=== PATIENT | male | born 1965 | race Caucasian/White ===

== ENCOUNTER 2021-11-14 08:29 | Day surgery (SDC) | payer BC ==
[~2021-11-14] VITALS: Ht 200.7 cm; Wt 129.3 kg
[2021-11-14] MEDS ORDERED: ZESTRIL 20MG TA20 MG PO (08:57)
[2021-11-14] MEDS ORDERED: NORVASC 10MG10 MG PO (08:58)
[2021-11-14] MEDS ORDERED: TYLENOL 325MG325 MG PO (08:59)
[2021-11-14] MEDS ORDERED: ALBUTEROL S0.4 MG/ML PO (09:13)
[2021-11-14 09:36] VITALS: BP 151/92; PULSE 84; TEMP 97.7
[2021-11-14 11:40] VITALS: BP 117/78; PULSE 83; TEMP 97.1
[2021-11-14 11:55] VITALS: BP 139/92; PULSE 78
[2021-11-14 12:10] VITALS: BP 151/92; PULSE 78
--- NOTE | 2021-11-14 12:30 | NUR ---
1140 Pt returned to [facility] via cart. Unable to transfer to chair. Pt allowed to remain on cart to rest. Pt awake and talking, mildly disoriented. Postop vitals started and WNL. Juice and muffin provided. at bedside. 1155 Pt sitting up in bed. Alert and oriented. Tolerating food and drink well. 1210 Pt sitting up in bed. Denies pain or nausea. Request to be discharged home. Reviewed discharge instructions and education material with pt and , both verbalize understnading and denies any questions. Removed IV without complications. Instructed pt to dress and call nurse when ready for discharge. 1230 Pt transfered via wheel chair to personal vehicle to be driven home by .
== END 2021-11-14 12:30 | disposition home or self-care (01) ==
LOC: SDCO 08:29
DX: Z12.11 Encounter for screening for malignant neoplasm of colon (principal); K63.5 Polyp of colon; K62.1 Rectal polyp; K91.1 Postgastric surgery syndromes; I10 Essential (primary) hypertension; J45.20 Mild intermittent asthma, uncomplicated; E78.2 Mixed hyperlipidemia; E66.9 Obesity, unspecified; R25.2 Cramp and spasm; R05.9 Cough, unspecified; Z79.899 Other long term (current) drug therapy; Z68.39 Body mass index [BMI] 39.0-39.9, adult; Z90.49 Acquired absence of other specified parts of digestive tract; Z83.3 Family history of diabetes mellitus; Z80.8 Family history of malignant neoplasm of other organs or systems
CPT/HCPCS: J2704; J7030

== ENCOUNTER → 2024-09-15 | Outpatient (CLI) | payer BC ==
[~2024-09-15] MED LIST: ALBUTEROL S0.4 MG/ML PO; NORVASC 10MG10 MG PO; TYLENOL 325MG325 MG PO; ZESTRIL 20MG TA20 MG PO
== END ==
LOC: COL.RAD 06:49
DX: I10 Essential (primary) hypertension (principal)